=== PATIENT | female | born 2000 | race Caucasian/White ===

== ENCOUNTER 2018-08-06 12:11 | Emergency (ER) | payer OTHER ==
[~2018-08-06] VITALS: Ht 162.6 cm; Wt 64.4 kg
[~2018-08-06 12:11] MED LIST: BIRTH CONTROL
[2018-08-06 12:36] LABS: Source, Urine Clean Catch
[2018-08-06 12:41] LABS: Appearance, Urine Hazy (Clear); Blood, Urine 2+ (Neg); Glucose Qualitative, Urine Neg (Neg); Ketones, Urine 1+ (Neg); Leukocyte Esterase, Urine 2+ (Neg); Nitrite, Urine Pos (Neg); Protein, Urine 2+ (Neg); Urobilinogen, Urine 3+ (Normal)
[2018-08-06 12:56] LABS: Bilirubin, Urine 3+ (Neg); Color, Urine Orange (P-Yellow)
[2018-08-06 12:57] LABS: Amorphous Light (0-Heavy); Bacteria Few /hpf; Squamous Epithelial Cells Few /hpf (Few)
[2018-08-06] MEDS ORDERED: CEPH500 PO (13:06)
[2018-08-06] MEDS ORDERED: Pyridium100 MG PO (13:06)
== END 2018-08-06 13:13 | disposition home or self-care (01) ==
LOC: ER 12:11
PROVIDERS: Physician Assistant
DX: N39.0 Urinary tract infection, site not specified (principal)
CPT/HCPCS: 81001; 81025; 87077; 87086; 87186; 99283